=== PATIENT | female | born 1985 | race Caucasian/White ===

== ENCOUNTER 2019-02-26 05:39 | Day surgery (SDC) | payer OTHER ==
[~2019-02-26] VITALS: Ht 149.9 cm; Wt 49.9 kg
[2019-02-26] MEDS ORDERED: ULTRACET PO (12:05)
[2019-02-26] MEDS ORDERED: PROTONIX40 MG PO (12:06)
== END 2019-02-26 13:00 | disposition home or self-care (01) ==
LOC: ER 05:39 → CIR.AMB 07:00 → O/R 07:49 → ER 07:49 → SEC-K 07:49 → ER 11:00 → EDSTATUS 11:00 → CIR.AMB 13:00 → SEC-K 16:20 → O/R 16:20
DX: K80.10 Calculus of gallbladder with chronic cholecystitis without obstruction (principal); K42.9 Umbilical hernia without obstruction or gangrene